=== PATIENT | female | born 1955 | race Caucasian/White ===

== ENCOUNTER 2024-07-03 08:28 | Emergency (ER) | payer MEDICARE ==
[~2024-07-03] VITALS: Ht 160 cm; Wt 101.6 kg
[2024-07-03 09:26] LABS: VENOUS BASE EXCESS 3.1 (-2.0-2.0); VENOUS HCO3 29.4 MMOL/L (23.0-27.0); VENOUS O2 SATURATION 47.1 % (60.0-80.0); VENOUS PARTIAL PRESSURE CO2 51.5 mmHg (38.0-50.0); VENOUS PARTIAL PRESSURE O2 27.2 mmHg (30.0-50.0); VENOUS PH 7.375 UNITS (7.330-7.430); VENOUS STANDARD HCO3 25.8 MMOL/L
[2024-07-03] MEDS: NS (Normal Saline) 0.9% 1,000 ML IV ONE (09:27)
[2024-07-03 09:40] LABS: BASO % 0.4 % (0.0-1.0); EOS # 0.1 10^3/uL (0.0-0.5); EOS % 0.6 % (0.0-3.0); HEMATOCRIT 46.3 % (36.0-47.0); HEMOGLOBIN 14.5 g/dl (12.0-15.5); LYMPH # 0.8 10^3/uL (1.5-5.0); LYMPH % 9.5 % (24.0-44.0); MEAN CORPUSCULAR HEMOGLOBIN 28.8 pg (27.0-33.0); MEAN CORPUSCULAR HGB CONC 31.3 g/dl (32.0-36.5); MONO # 0.6 10^3/uL (0.0-0.8); MONO % 6.6 % (2.0-8.0); NEUTROPHILS # 6.8 10^3/uL (1.5-8.5); NEUTROPHILS % 82.3 % (36.0-66.0); PLATELET COUNT, AUTOMATED 179 10^3/uL (150-450); RED BLOOD COUNT 5.03 10^6/uL (4.00-5.40); WHITE BLOOD COUNT 8.3 10^3/uL (4.0-10.0)
[2024-07-03 09:53] LABS: CK-MB VALUE MASS < 1.0 NG/ML (<3.6); ETHYL ALCOHOL (ETHANOL) 0.004 % (0.000-0.010)
[2024-07-03 09:54] LABS: SALICYLATE LEVEL < 3.0 MG/DL (<30)
[2024-07-03 09:55] LABS: ALBUMIN 3.4 G/DL (3.2-5.2); ALKALINE PHOSPHATASE 60 U/L (35-104); ALT/SGPT 25 U/L (7.0-40); AST/SGOT 18 U/L (<34); BILIRUBIN,DIRECT 0.1 MG/DL (<0.4); BILIRUBIN,TOTAL 0.4 MG/DL (0.3-1.2); BLOOD UREA NITROGEN 35 MG/DL (9-23); CALCIUM LEVEL 9.3 MG/DL (8.3-10.6); CARBON DIOXIDE LEVEL 31 MMOL/L (20-31); CHLORIDE LEVEL 102 MMOL/L (98-107); CPK CREATINE PHOSPHOKINASE 36 U/L (34-145); CREATININE FOR GFR 0.95 MG/DL (0.55-1.30); GLOMERULAR FILTRATION RATE 64.1 (>39); GLUCOSE, FASTING 134 MG/DL (74-106); MB/CK RELATIVE INDEX 2.77 (< OR =4); POTASSIUM SERUM 4.2 MMOL/L (3.5-5.1); SODIUM LEVEL 141 MMOL/L (136-145); TOTAL PROTEIN 6.5 G/DL (5.7-8.2)
[2024-07-03 09:56] LABS: THYROID STIMULATING HORMONE 2.396 uIU/ML (0.55-4.78)
[2024-07-03] MEDS: LIDOCAINE 2% 5ML JELLY UROJET TOP ONE (10:58)
[2024-07-03] MEDS: NS 500 ML IV ONE (12:05)
[2024-07-03 12:45] LABS: KETONE, URINE AUTO RFX NEGATIVE (NEGATIVE); MUCUS, URINE RFX SMALL (NEGATIVE); NITRITE, URINE AUTO RFX NEGATIVE (NEGATIVE); RBC, URINE AUTO RFX 1 /HPF (0-3); SQUAM EPITHELIAL CELL UR AURFX 1 /HPF (0-6); WBC, URINE AUTO RFX 5 /HPF (0-3)
[2024-07-03 12:48] LABS: LEUKOCYTE ESTERASE UR AUTO RFX 2+ (NEGATIVE)
[2024-07-03 13:08] LABS: AMPHETAMINES LEVEL URINE NEGATIVE (NEGATIVE); BARBITURATES URINE NEGATIVE (NEGATIVE); BENZODIAZEPINES URINE NEGATIVE (NEGATIVE); COCAINE METABOLITE URINE NEGATIVE (NEGATIVE); METHADONE URINE NEGATIVE (NEGATIVE); OPIATES URINE NEGATIVE (NEGATIVE); PHENCYCLIDINE URINE NEGATIVE (NEGATIVE)
[2024-07-03 13:11] LABS: CANNABINOIDS URINE POSITIVE (NEGATIVE)
[2024-07-03] MEDS: OSELTAMIVIR PHOSPHATE 75 MG CAP PO ONE (13:22)
[2024-07-03] MEDS ORDERED: BACT800T5 PO (13:57)
[2024-07-03] MEDS ORDERED: OSEL75CA PO (13:57)
[2024-07-03 14:35] VITALS: BP 133/67; TEMP 98.7; O2SAT 96
[2024-07-03] MEDS: BACTRIM 160MG/800MG DS TAB PO ONE (14:46)
[2024-07-04] MEDS ORDERED: PRED10TA2 PO (10:56)
[2024-07-04] MEDS ORDERED: VITA-172 PO (10:56)
[2024-07-04] MEDS ORDERED: VITA100054 PO (10:56)
[2024-07-04] MEDS ORDERED: HYDR-3490 PO (10:56)
[2024-07-04] MEDS ORDERED: PARO30TA3 PO (12:04)
[2024-07-04] MEDS ORDERED: GLIM2TAB4 PO (12:04)
[2024-07-04] MEDS ORDERED: PIOG1TAB37 PO (12:04)
[2024-07-04] MEDS ORDERED: FAMO20TA PO (12:04)
[2024-07-04] MEDS ORDERED: PARO20TA4 PO (12:04)
== END 2024-07-03 14:51 | disposition home or self-care (01) ==
LOC: M ED 08:28 → EDBD 08:28 → M ED 14:51
DX: R53.1 Weakness (principal); J10.1 Influenza due to other identified influenza virus with other respiratory manifestations; N39.0 Urinary tract infection, site not specified; E11.9 Type 2 diabetes mellitus without complications; F12.10 Cannabis abuse, uncomplicated; F10.10 Alcohol abuse, uncomplicated; Z79.51 Long term (current) use of inhaled steroids; Z79.2 Long term (current) use of antibiotics; Z79.84 Long term (current) use of oral hypoglycemic drugs; Z79.899 Other long term (current) drug therapy

== ENCOUNTER 2024-07-04 06:05 | Observation (INO) | payer MEDICARE ==
[~2024-07-04] VITALS: Ht 160 cm; Wt 98.4 kg
[~2024-07-04 06:05] MED LIST: BACT800T5 PO; OSEL75CA PO
[2024-07-04 06:49] LABS: BASO % 0.4 % (0.0-1.0); EOS % 0.4 % (0.0-3.0); HEMATOCRIT 43.8 % (36.0-47.0); LYMPH # 1.7 10^3/uL (1.5-5.0); LYMPH % 34.6 % (24.0-44.0); MEAN CORPUSCULAR HEMOGLOBIN 28.7 pg (27.0-33.0); MEAN CORPUSCULAR VOLUME 89.8 fl (80.0-96.0); MONO # 0.6 10^3/uL (0.0-0.8); MONO % 11.8 % (2.0-8.0); NEUTROPHILS # 2.6 10^3/uL (1.5-8.5); NEUTROPHILS % 52.2 % (36.0-66.0); PLATELET COUNT, AUTOMATED 167 10^3/uL (150-450); RED BLOOD COUNT 4.88 10^6/uL (4.00-5.40); WHITE BLOOD COUNT 4.9 10^3/uL (4.0-10.0)
[2024-07-04] MEDS: IPRATROPIUM 0.5MG/ALBUTEROL 2.5MG INH SOL UD 3ML NEB ONE (07:15)
[2024-07-04 07:21] LABS: ALBUMIN 3.4 G/DL (3.2-5.2); BILIRUBIN,DIRECT 0.2 MG/DL (<0.4); BILIRUBIN,TOTAL 0.5 MG/DL (0.3-1.2); CALCIUM LEVEL 8.8 MG/DL (8.3-10.6); CREATININE FOR GFR 0.92 MG/DL (0.55-1.30); GLOMERULAR FILTRATION RATE 66.6 (>39); POTASSIUM SERUM 4.1 MMOL/L (3.5-5.1); TOTAL PROTEIN 6.4 G/DL (5.7-8.2)
[2024-07-04] MEDS: ACETAMINOPHEN 325 MG TAB PO ONE (07:34)
[2024-07-04] MEDS: NS (Normal Saline) 0.9% 1,000 ML IV ONE (07:36)
[2024-07-04] MEDS ORDERED: PRED10TA2 PO (10:56)
[2024-07-04] MEDS ORDERED: HYDR-3490 PO (10:56)
[2024-07-04] MEDS ORDERED: VITA-172 PO (10:56)
[2024-07-04] MEDS ORDERED: VITA100054 PO (10:56)
[2024-07-04] MEDS ORDERED: HOME MED LIST COMPLETE! XX SCH (11:00)
[2024-07-04] MEDS ORDERED: DEXTROSE 50% 50ML SYRINGE IV PRN (11:35)
[2024-07-04] MEDS ORDERED: GLUCAGON INJ 1MG VIAL SC PRN (11:35)
[2024-07-04] MEDS ORDERED: GLUCOSE 4 GM CHEW PO PRN (11:35)
[2024-07-04] MEDS ORDERED: guaiFENesin DM *SUGAR FREE* 5ML**DIABETIC TUSSIN DM PO PRN (11:40)
[2024-07-04] MEDS ORDERED: IPRATROPIUM 0.5MG/ALBUTEROL 2.5MG INH SOL UD 3ML NEB PRN (11:40)
[2024-07-04] MEDS ORDERED: ISOVUE-370 76% 100ML VIAL As Ordered ONE (11:54)
[2024-07-04] MEDS: INSULIN LISPRO (NovoLOG) PER UNIT SC SCH ×2 (12:00→21:00)
[2024-07-04] MEDS ORDERED: GLIM2TAB4 PO (12:04)
[2024-07-04] MEDS ORDERED: FAMO20TA PO (12:04)
[2024-07-04] MEDS ORDERED: PIOG1TAB37 PO (12:04)
[2024-07-04] MEDS ORDERED: PARO30TA3 PO (12:04)
[2024-07-04] MEDS ORDERED: PARO20TA4 PO (12:04)
[2024-07-04] MEDS: LORazepam 2 MG/ML 1ML VIAL IV STA (12:09)
[2024-07-04] MEDS: IPRATROPIUM 0.5MG/ALBUTEROL 2.5MG INH SOL UD 3ML NEB SCH (12:36)
[2024-07-04 14:00] VITALS: BP 131/85; TEMP 98.6; O2SAT 95
[2024-07-04] MEDS: cefTRIAXone SOD 2 GM in DEXTROSE 5% (D5W) ADV/MINI-BAG 50 ML IV SCH (14:33)
[2024-07-04] MEDS: ONDANSETRON 4MG 2ML VIAL IV PRN (14:36)
[2024-07-04 16:00] VITALS: BP 123/84; TEMP 97.5; O2SAT 88
[2024-07-04] MEDS: PARoxetine 20MG TABLET PO SCH (16:50)
[2024-07-04] MEDS: predniSONE 10MG TAB PO SCH (16:50)
[2024-07-04] MEDS: PARoxetine 10MG TABLET PO SCH (16:50)
[2024-07-04] MEDS: FAMOTIDINE 20 MG TAB PO SCH (16:50)
[2024-07-04 20:09] VITALS: BP 114/73; TEMP 98.8; O2SAT 90
[2024-07-05] VITALS: BP 126/71; TEMP 97.6; O2SAT 93
[2024-07-05 04:50] VITALS: BP 145/64; TEMP 98.6; O2SAT 91
[2024-07-05 07:22] LABS: HEMATOCRIT 39.4 % (36.0-47.0); HEMOGLOBIN 12.7 g/dl (12.0-15.5); MEAN CORPUSCULAR HEMOGLOBIN 28.6 pg (27.0-33.0); MEAN CORPUSCULAR HGB CONC 32.2 g/dl (32.0-36.5); MEAN CORPUSCULAR VOLUME 88.7 fl (80.0-96.0); PLATELET COUNT, AUTOMATED 136 10^3/uL (150-450); RED BLOOD COUNT 4.44 10^6/uL (4.00-5.40); WHITE BLOOD COUNT 3.2 10^3/uL (4.0-10.0)
[2024-07-05 07:36] LABS: ANISOCYTOSIS 1+; ATYPICAL LYMPH 8 % (0-5); BASOPHILS 1 % (0-1); LYMPHOCYTES 41 % (16-44); MONOCYTES 6 % (0-5); NEUTROPHILS 44 % (28-66); PLATELET ESTIMATE NORMAL (NORMAL)
[2024-07-05 07:37] LABS: POIKILOCYTOSIS 1+
[2024-07-05 07:50] LABS: CALCIUM LEVEL 8.2 MG/DL (8.3-10.6); CREATININE FOR GFR 0.83 MG/DL (0.55-1.30); GLOMERULAR FILTRATION RATE 75.3 (>39); MAGNESIUM LEVEL 1.6 MG/DL (1.8-2.4)
[2024-07-05 08:00] VITALS: BP 117/59; TEMP 97.7; O2SAT 94
[2024-07-05 08:21] LABS: PROCALCITONIN 0.11 ng/ml
[2024-07-05] MEDS ORDERED: VENTAER INH (08:57)
[2024-07-05] MEDS ORDERED: CEFD1CAP9 PO (08:57)
[2024-07-05] MEDS ORDERED: MAGN500T2 PO (09:00)
[2024-07-05] MEDS: ENOXAPARIN 40MG/0.4ML SYRINGE (J1650 PER 10MG) SC SCH (09:09)
[2024-07-05] MEDS: ACETAMINOPHEN 500 MG TAB PO ONE (09:33)
[2024-07-05] MEDS ORDERED: ONDA-83 PO (11:37)
== END 2024-07-05 11:45 | disposition home or self-care (01) ==
LOC: M ED 06:05 → M ED INP 06:06 → UNDOADMOB 10:33 → M ED INP 10:33 → M MS5PR 13:45 → UNDODISOB 07-05 11:45
PROVIDERS: ADMIT Internal Medicine; ATTEND Internal Medicine
DX: J10.1 Influenza due to other identified influenza virus with other respiratory manifestations (principal); J40 Bronchitis, not specified as acute or chronic; N39.0 Urinary tract infection, site not specified; D75.9 Disease of blood and blood-forming organs, unspecified; E11.9 Type 2 diabetes mellitus without complications; F41.1 Generalized anxiety disorder; M32.9 Systemic lupus erythematosus, unspecified; E83.42 Hypomagnesemia; K57.90 Diverticulosis of intestine, part unspecified, without perforation or abscess without bleeding; R10.9 Unspecified abdominal pain; R06.02 Shortness of breath; R50.9 Fever, unspecified; E66.812 Obesity, class 2; Z98.890 Other specified postprocedural states; Z90.49 Acquired absence of other specified parts of digestive tract; Z80.0 Family history of malignant neoplasm of digestive organs; Z82.41 Family history of sudden cardiac death; Z79.899 Other long term (current) drug therapy
CPT/HCPCS: 36415; 71045; 71275; 80048; 80076; 83605; 83735; 84145; 85025; 87040; 93005; 93041; 94640; 94760; 96361; 96372; 96374; 96375; 99285; G0378; J0696; J1650; J2060; J2405; J7512; Q9967

== ENCOUNTER → 2024-08-04 | Outpatient (REF) | payer MEDICARE ==
[~2024-08-04] MED LIST changes: +CEFD1CAP9 PO; +CHOL25CA2 PO; +FAMO20TA PO; +GLIM2TAB4 PO; +HYDR-3490 PO; +MAGN500T2 PO; +ONDA-83 PO; +PARO20TA4 PO; +PARO30TA3 PO; +PIOG1TAB37 PO; +PRED10TA2 PO; +VENTAER INH; +VITA-172 PO
[2024-08-04 17:55] LABS: BASO % 0.6 % (0.0-1.0); EOS # 0.2 10^3/uL (0.0-0.5); EOS % 2.2 % (0.0-3.0); HEMATOCRIT 36.2 % (36.0-47.0); HEMOGLOBIN 11.6 g/dl (12.0-15.5); LYMPH # 1.9 10^3/uL (1.5-5.0); LYMPH % 27.3 % (24.0-44.0); MEAN CORPUSCULAR HEMOGLOBIN 29.4 pg (27.0-33.0); MEAN CORPUSCULAR VOLUME 91.9 fl (80.0-96.0); MONO # 0.5 10^3/uL (0.0-0.8); MONO % 6.9 % (2.0-8.0); NEUTROPHILS # 4.3 10^3/uL (1.5-8.5); NEUTROPHILS % 62.6 % (36.0-66.0); PLATELET COUNT, AUTOMATED 211 10^3/uL (150-450); RED BLOOD COUNT 3.94 10^6/uL (4.00-5.40); WHITE BLOOD COUNT 6.9 10^3/uL (4.0-10.0)
[2024-08-04 18:09] LABS: C REACTIVE PROTEIN QUANTITATIV 1.13 MG/DL (<1.0)
[2024-08-04 18:10] LABS: ALBUMIN 3.2 G/DL (3.2-5.2); ALKALINE PHOSPHATASE 43 U/L (35-104); ALT/SGPT 32 U/L (7.0-40); AST/SGOT 16 U/L (<34); BILIRUBIN,TOTAL 0.4 MG/DL (0.3-1.2); BLOOD UREA NITROGEN 25 MG/DL (9-23); CARBON DIOXIDE LEVEL 31 MMOL/L (20-31); CHLORIDE LEVEL 104 MMOL/L (98-107); CHOLESTEROL LEVEL 225 MG/DL (<200); CHOLESTEROL RISK RATIO 4.55 (<5); CREATININE FOR GFR 0.74 MG/DL (0.55-1.30); GLOMERULAR FILTRATION RATE 86.4 (>39); GLUCOSE, FASTING 261 MG/DL (74-106); HDL CHOLESTEROL 49.4 MG/DL (>40); MAGNESIUM LEVEL 1.7 MG/DL (1.8-2.4); NON-HDL-C 175.6 MG/DL; POTASSIUM SERUM 3.5 MMOL/L (3.5-5.1); SODIUM LEVEL 142 MMOL/L (136-145); TRIGLYCERIDES LEVEL 407 MG/DL (<150)
[2024-08-04 18:13] LABS: RHEUMATOID FACTOR QUANT 10.9 IU/ML (<14); THYROID STIMULATING HORMONE 2.346 uIU/ML (0.55-4.78)
[2024-08-04 18:14] LABS: FOLATE 21.2 NG/ML (>5.4); TOTAL 25(OH) VITAMIN D 37.9 NG/ML (20.0-100.0); VITAMIN B12 LEVEL 1652 PG/ML (211-911)
[2024-08-04 18:26] LABS: HEMOGLOBIN A1c 6.5 % (4.0-6.0)
[2024-08-04 19:29] LABS: ERYTHROCYTE SEDIMENTATION RATE 27 mm/hr (0-30)
[2024-08-06 12:46] LABS: SSA SJOGRENS A <1.0 NEG AI (<1.0 NEG); SSB SJOGRENS B <1.0 NEG AI (<1.0 NEG)
[2024-08-07 15:07] LABS: ANA PATTERN Nuclear, Homogeneous (NEGATIVE); ANA SCREEN, IFA POSITIVE (NEGATIVE)
[2024-08-11 15:32] LABS: HLA-B27 Negative (Negative)
== END ==
LOC: M LAB REF 16:54
PROVIDERS: ATTEND Physician Assistant
DX: E66.9 Obesity, unspecified (principal); E55.9 Vitamin D deficiency, unspecified; M25.50 Pain in unspecified joint; I10 Essential (primary) hypertension

== ENCOUNTER → 2024-08-10 | Outpatient (REF) | payer MEDICARE ==
[2024-08-10 18:19] LABS: CREATININE, URINE 109.3 MG/DL; MALB URINE SIEMENS < 3.0 MG/L
== END ==
LOC: M LAB REF 17:20
PROVIDERS: ATTEND Physician Assistant
DX: I10 Essential (primary) hypertension (principal)

== ENCOUNTER → 2024-12-02 | Outpatient (CLI) | payer MEDICARE ==
[2024-12-02 13:39] LABS: ESTIMATED AVERAGE GLUCOSE 117.0 MG/DL (60-110)
[2024-12-02 13:47] LABS: ALT/SGPT 19 U/L (7.0-40); AST/SGOT 17 U/L (<34); CALCIUM LEVEL 10.0 MG/DL (8.3-10.6); CARBON DIOXIDE LEVEL 28 MMOL/L (20-31); CHLORIDE LEVEL 106 MMOL/L (98-107); CREATININE FOR GFR 0.80 MG/DL (0.55-1.30); GLOMERULAR FILTRATION RATE 78.7 (>39); POTASSIUM SERUM 4.1 MMOL/L (3.5-5.1); SODIUM LEVEL 143 MMOL/L (136-145)
[2024-12-02 13:48] LABS: VITAMIN B12 LEVEL 1965 PG/ML (211-911)
[2024-12-02 13:49] LABS: FREE T4 1.34 NG/DL (0.89-1.76)
== END ==
LOC: M RAD 11:34
PROVIDERS: ATTEND Family Medicine
DX: M25.511 Pain in right shoulder (principal); M25.512 Pain in left shoulder; E11.69 Type 2 diabetes mellitus with other specified complication; R33.9 Retention of urine, unspecified; R20.9 Unspecified disturbances of skin sensation

== ENCOUNTER → 2024-12-18 | Outpatient (CLI) | payer MEDICARE | LOC: M SLEEP 20:00 | PROVIDERS: ATTEND Physician Assistant | DX: G47.33 Obstructive sleep apnea (adult) (pediatric) (principal) ==

== ENCOUNTER → 2025-01-06 | Outpatient (CLI) | payer MEDICARE ==
[~2025-01-06] MED LIST changes: +PROHANCE 279.3MG/ML 15ML VIAL ONE; +PROHANCE 279.3MG/ML 5ML VIAL ONE
== END ==
LOC: M PLAIMG 12:58
PROVIDERS: ATTEND Family Medicine
DX: R33.9 Retention of urine, unspecified (principal); R26.9 Unspecified abnormalities of gait and mobility
CPT/HCPCS: 72156; 72158; A9576

== ENCOUNTER → 2025-01-08 | Outpatient (CLI) | payer MEDICARE | LOC: M PLAIMG 13:27 | PROVIDERS: ATTEND Family Medicine | DX: R33.9 Retention of urine, unspecified (principal); R26.9 Unspecified abnormalities of gait and mobility; R20.9 Unspecified disturbances of skin sensation; M47.814 Spondylosis without myelopathy or radiculopathy, thoracic region; M51.24 Other intervertebral disc displacement, thoracic region; M46.04 Spinal enthesopathy, thoracic region; M48.04 Spinal stenosis, thoracic region | CPT/HCPCS: 72157; A9576 ==

== ENCOUNTER → 2025-02-02 | Outpatient (CLI) | payer MEDICARE ==
[~2025-02-02] MED LIST changes: -PROHANCE 279.3MG/ML 15ML VIAL ONE; -PROHANCE 279.3MG/ML 5ML VIAL ONE
== END ==
LOC: M PLAIMG 06:50
PROVIDERS: ATTEND Physician Assistant
DX: M50.23 Other cervical disc displacement, cervicothoracic region (principal); M48.02 Spinal stenosis, cervical region; M47.812 Spondylosis without myelopathy or radiculopathy, cervical region; M50.00 Cervical disc disorder with myelopathy, unspecified cervical region

== ENCOUNTER → 2025-02-03 | Outpatient (CLI) | payer MEDICARE ==
[2025-02-03 16:35] LABS: CREATININE FOR GFR 0.82 MG/DL (0.55-1.30); GLOMERULAR FILTRATION RATE 76.4 (>39)
== END ==
LOC: M PLALAB 12:56
PROVIDERS: ATTEND Otolaryngology
DX: M50.01 Cervical disc disorder with myelopathy, high cervical region (principal)

== ENCOUNTER → 2025-02-05 | Outpatient (CLI) | payer MEDICARE ==
[~2025-02-05] MED LIST changes: +ISOVUE-370 76% 100 ML VIAL As Ordered ONE
== END ==
LOC: M RAD 07:12
PROVIDERS: ATTEND Otolaryngology
DX: M50.01 Cervical disc disorder with myelopathy, high cervical region (principal); E04.2 Nontoxic multinodular goiter; M47.12 Other spondylosis with myelopathy, cervical region; M48.02 Spinal stenosis, cervical region
CPT/HCPCS: 70491; Q9967

== ENCOUNTER → 2025-02-23 | Outpatient (CLI) | payer MEDICARE ==
[~2025-02-23] MED LIST changes: +CARDIAC STRESS TEST RESCUE BOX 1 KIT EA XX ONE; -CHOL25CA2 PO; +D3 H10003 PO; -ISOVUE-370 76% 100 ML VIAL As Ordered ONE; +LOSA25TA13 PO; +PREG25CA63 PO
== END ==
LOC: M CARPUL 14:34
PROVIDERS: ATTEND Family Medicine
DX: Z01.818 Encounter for other preprocedural examination (principal)

== ENCOUNTER → 2025-03-02 | Outpatient (CLI) | payer MEDICARE ==
[~2025-03-02] MED LIST changes: -CARDIAC STRESS TEST RESCUE BOX 1 KIT EA XX ONE
[2025-03-02 17:33] LABS: BASO # 0.1 10^3/uL (0.0-0.2); BASO % 0.9 % (0.0-1.0); EOS # 0.1 10^3/uL (0.0-0.5); EOS % 2.3 % (0.0-3.0); LYMPH # 1.8 10^3/uL (1.5-5.0); LYMPH % 31.2 % (24.0-44.0); MONO # 0.4 10^3/uL (0.0-0.8); MONO % 6.3 % (2.0-8.0); NEUTROPHILS # 3.4 10^3/uL (1.5-8.5); NEUTROPHILS % 58.9 % (36.0-66.0); PLATELET COUNT, AUTOMATED 242 10^3/uL (150-450)
[2025-03-02 17:39] LABS: ALT/SGPT 15.0 U/L (7.0-40); AST/SGOT 25.0 U/L (<34); CALCIUM LEVEL 9.7 MG/DL (8.3-10.6); CARBON DIOXIDE LEVEL 32.0 MMOL/L (20-31); CHLORIDE LEVEL 103.0 MMOL/L (98-107); CREATININE FOR GFR 0.85 MG/DL (0.55-1.30); GLOMERULAR FILTRATION RATE 73.2 (>39); POTASSIUM SERUM 4.4 MMOL/L (3.5-5.1); SODIUM LEVEL 143.0 MMOL/L (136-145)
[2025-03-02 17:47] LABS: ESTIMATED AVERAGE GLUCOSE 103.0 MG/DL (60-110)
== END ==
LOC: M PLALAB 14:34
PROVIDERS: ATTEND Family Medicine
DX: Z01.818 Encounter for other preprocedural examination (principal); G95.20 Unspecified cord compression

== ENCOUNTER → 2025-03-02 | Outpatient (CLI) | payer MEDICARE | LOC: M WHC 14:02 | PROVIDERS: ATTEND Otolaryngology | DX: Z01.818 Encounter for other preprocedural examination (principal); E04.1 Nontoxic single thyroid nodule; Z79.899 Other long term (current) drug therapy; G95.20 Unspecified cord compression ==

== ENCOUNTER → 2025-03-08 | Outpatient (CLI) | payer MEDICARE ==
[~2025-03-08] MED LIST changes: +ACET-683 PO; +ACET-897 PO; +ALPR0.5T3 PO; +CYCL10TA20 PO; +GLIM1TAB84 PO; +LYRI75CA PO; +MIRA33506 PO; +OXYC-517 PO; +SENN18TA PO
[2025-03-08 11:37] LABS: APPEARANCE, URINE CLEAR (CLEAR); BACTERIA, URINE AUTO NEGATIVE (NEGATIVE); BILIRUBIN, URINE AUTO NEGATIVE (NEGATIVE); BLOOD, URINE BLOOD NEGATIVE (NEGATIVE); GLUCOSE, URINE (UA) AUTO NEGATIVE (NEGATIVE); KETONE, URINE AUTO TRACE mg/dL (NEGATIVE); LEUKOCYTE ESTERASE, URINE AUTO TRACE (NEGATIVE); MUCUS, URINE SMALL (NEGATIVE); NITRITE, URINE AUTO NEGATIVE (NEGATIVE); PROTEIN, URINE AUTO NEGATIVE (NEGATIVE); RBC, URINE AUTO 1 /HPF (0-3); SPECIFIC GRAVITY URINE AUTO 1.021 (1.002-1.035); SQUAMOUS EPITHELIAL CELL UR AU 1 /HPF (0-6); UROBILINOGEN, URINE AUTO 0.2 mg/dL (0.0-2.0); WBC, URINE AUTO 4 /HPF (0-3)
[2025-03-08 11:59] LABS: INR 0.92
== END ==
LOC: M LAB 11:00
DX: Z01.818 Encounter for other preprocedural examination (principal); M50.01 Cervical disc disorder with myelopathy, high cervical region; Z79.899 Other long term (current) drug therapy

== ENCOUNTER → 2025-03-08 | Outpatient (CLI) | payer MEDICARE ==
[~2025-03-08] MED LIST changes: -ACET-683 PO; -ACET-897 PO; -ALPR0.5T3 PO; -CYCL10TA20 PO; -GLIM1TAB84 PO; -LYRI75CA PO; -MIRA33506 PO; -OXYC-517 PO; -SENN18TA PO
[2025-03-08 11:24] LABS: CREATININE FOR GFR 0.78 MG/DL (0.55-1.30); GLOMERULAR FILTRATION RATE 81.2 (>39)
== END ==
LOC: M LAB 10:10
PROVIDERS: ATTEND Otolaryngology
DX: M50.01 Cervical disc disorder with myelopathy, high cervical region (principal)

== ENCOUNTER 2025-03-09 06:50 | Inpatient (IN) | payer MEDICARE ==
[~2025-03-09] VITALS: Ht 160 cm; Wt 116.0 kg
[2025-03-09] MEDS: LR 1,000 ML IV SCH ×2 (07:05→19:25)
[2025-03-09] MEDS ORDERED: GLUCOSE 4 GM CHEW PO PRN ×2 (07:05→19:45)
[2025-03-09] MEDS ORDERED: DEXTROSE 50% 50 ML SYRINGE IV PRN ×2 (07:05→19:45)
[2025-03-09] MEDS ORDERED: INSULIN LISPRO (NovoLOG) PER UNIT SC PRN (07:05)
[2025-03-09] MEDS ORDERED: GLUCAGON INJ 1 MG VIAL SC PRN ×2 (07:05→19:45)
[2025-03-09] MEDS ORDERED: PROPOFOL 1,000 MG/100 ML VIAL As Ordered ONE (07:28)
[2025-03-09] MEDS ORDERED: ROCURONIUM BROMIDE 50MG/5ML VIAL As Ordered ONE (07:29)
[2025-03-09] MEDS ORDERED: SUCCINYLCHOLINE 100MG/5ML SYRINGE As Ordered ONE (07:29)
[2025-03-09] MEDS ORDERED: PHENYLEPHRINE 10MG/ML 1ML VIAL As Ordered ONE (07:31)
[2025-03-09] MEDS ORDERED: ONDANSETRON 4MG/2ML VIAL As Ordered ONE (07:32)
[2025-03-09] MEDS ORDERED: dexAMETHasone 4 MG/ML 1 ML VIAL As Ordered ONE (07:32)
[2025-03-09] MEDS ORDERED: REMIFENTANIL 1MG VIAL As Ordered ONE (07:36)
[2025-03-09] MEDS: ceFAZolin SOD 2 GM IV ONCE IV ONE (08:24)
[2025-03-09] MEDS: LIDOCAINE W/EPINEPHrine 1% 20 ML VIAL As Ordered ONE (09:40)
[2025-03-09] MEDS ORDERED: ACETAMINOPHEN 1000MG/100ML IV BAG As Ordered ONE (10:02)
[2025-03-09] MEDS: THROMBIN 5,000 UNITS VIAL As Ordered ONE (18:04)
[2025-03-09] MEDS: THROMBIN 20,000 UNITS KIT As Ordered ONE (18:05)
[2025-03-09] MEDS ORDERED: HYDROmorphone HCL 2 MG/ML 1 ML VIAL As Ordered ONE (18:56)
[2025-03-09] MEDS ORDERED: LABETALOL 100 MG/20 ML VIAL As Ordered ONE (19:14)
[2025-03-09] MEDS ORDERED: HYDROMORPHONE HCL 0.5 MG/0.5 ML SYRINGE IV PRN (19:25)
[2025-03-09] MEDS ORDERED: ONDANSETRON 4MG/2ML VIAL IV PRN (19:25)
[2025-03-09] MEDS ORDERED: CHLORASEPTIC SPRAY MT PRN (19:45)
[2025-03-09] MEDS ORDERED: hydrALAZINE 20 MG/ML 1 ML VIAL IV PRN (19:45)
[2025-03-09] MEDS ORDERED: METOPROLOL 5 MG/5 ML VIAL IV PRN (19:45)
[2025-03-09] MEDS ORDERED: ISOVUE-370 76% 100 ML VIAL As Ordered ONE (20:22)
[2025-03-09 21:00] VITALS: BP 144/65; TEMP 97; O2SAT 94
[2025-03-09] MEDS: INSULIN LISPRO (NovoLOG) PER UNIT SC SCH (21:00)
[2025-03-09] MEDS: DOCUSATE SODIUM 100 MG CAPSULE PO SCH (21:00)
[2025-03-09] MEDS: CYCLOBENZAPRINE 10 MG TABLET PO PRN (21:18)
[2025-03-09] MEDS: SENNA 8.6 MG TAB PO SCH (21:18)
[2025-03-09 21:30] VITALS: BP 115/57; TEMP 97; O2SAT 94
[2025-03-09] MEDS: NS (Normal Saline) 0.9% 1,000 ML IV ONE (21:35)
[2025-03-09 21:54] VITALS: BP 111/54; TEMP 97.1; O2SAT 96
[2025-03-09 22:58] VITALS: BP 114/54; TEMP 97; O2SAT 95
[2025-03-09 23:49] VITALS: BP 131/60; TEMP 97; O2SAT 95
[2025-03-09] MEDS: ACETAMINOPHEN 325 MG TAB PO SCH (23:49)
[2025-03-10] VITALS (9 sets, daily range): BP systolic 110–142; BP diastolic 56–64; TEMP 96.9–97.6; O2SAT 94–100
[2025-03-10] MEDS: ceFAZolin SODIUM 2 GM in DEXTROSE 5% (D5W) ADV/MINI-BAG 50 ML IV SCH (00:48)
[2025-03-10] MEDS: INSULIN LISPRO (NovoLOG) PER UNIT SC SCH (07:30)
[2025-03-10 07:43] LABS: PLATELET COUNT, AUTOMATED 227 10^3/uL (150-450)
[2025-03-10] MEDS: FAMOTIDINE 20 MG TAB PO SCH (07:58)
[2025-03-10] MEDS: PARoxetine 20MG TABLET PO SCH (07:58)
[2025-03-10] MEDS ORDERED: HOME MED LIST COMPLETE! XX SCH (08:05)
[2025-03-10 08:07] LABS: CALCIUM LEVEL 9.1 MG/DL (8.3-10.6); CARBON DIOXIDE LEVEL 29.0 MMOL/L (20-31); CHLORIDE LEVEL 101.0 MMOL/L (98-107); CREATININE FOR GFR 0.85 MG/DL (0.55-1.30); GLOMERULAR FILTRATION RATE 73.2 (>39); POTASSIUM SERUM 4.2 MMOL/L (3.5-5.1); SODIUM LEVEL 140.0 MMOL/L (136-145)
[2025-03-10] MEDS: LOSARTAN 25 MG TAB PO SCH (13:57)
[2025-03-11 03:26] VITALS: BP 127/60; TEMP 97.2; O2SAT 97
[2025-03-11 06:09] LABS: PLATELET COUNT, AUTOMATED 190 10^3/uL (150-450)
[2025-03-11 06:33] LABS: CALCIUM LEVEL 8.8 MG/DL (8.3-10.6); CARBON DIOXIDE LEVEL 31.0 MMOL/L (20-31); CHLORIDE LEVEL 105.0 MMOL/L (98-107); CREATININE FOR GFR 0.84 MG/DL (0.55-1.30); GLOMERULAR FILTRATION RATE 74.3 (>39); POTASSIUM SERUM 3.6 MMOL/L (3.5-5.1); SODIUM LEVEL 143.0 MMOL/L (136-145)
[2025-03-11 07:13] VITALS: BP 131/60; TEMP 97.7; O2SAT 94
[2025-03-11] MEDS: ALPRAZolam 0.25 MG TAB PO ONE (10:11)
[2025-03-11 12:49] VITALS: BP 144/67; TEMP 97.1; O2SAT 95
[2025-03-11] MEDS: HEPARIN SOD 5000 UNITS/ML 1 ML VIAL/SYRINGE SQ SCH (13:06)
[2025-03-11] MEDS ORDERED: HEPARIN SOD 5000 UNITS/ML 1 ML VIAL/SYRINGE SQ SCH (14:00)
[2025-03-11 16:15] VITALS: BP 142/65; TEMP 97.1; O2SAT 99
[2025-03-11 20:17] VITALS: BP 146/74; TEMP 97.4; O2SAT 94
[2025-03-11] MEDS: traZODone 25MG PER 1/2 TABLET PO ONE (22:02)
[2025-03-11 23:25] VITALS: BP 140/82; TEMP 98; O2SAT 92
[2025-03-12] MEDS: diphenhydrAMINE 50 MG/ML VIAL IV ONE (00:29)
[2025-03-12 03:35] VITALS: BP 143/63; TEMP 97.4; O2SAT 94
[2025-03-12 05:58] LABS: PLATELET COUNT, AUTOMATED 143 10^3/uL (150-450)
[2025-03-12 06:22] LABS: CALCIUM LEVEL 8.7 MG/DL (8.3-10.6); CARBON DIOXIDE LEVEL 30 MMOL/L (20-31); CHLORIDE LEVEL 105 MMOL/L (98-107); CREATININE FOR GFR 0.69 MG/DL (0.55-1.30); GLOMERULAR FILTRATION RATE > 90.0 (>39); POTASSIUM SERUM 3.9 MMOL/L (3.5-5.1); SODIUM LEVEL 145 MMOL/L (136-145)
[2025-03-12 07:59] VITALS: BP 132/76; TEMP 98.3; O2SAT 98
[2025-03-12] MEDS: ALPRAZolam 0.25 MG TAB PO PRN (09:00)
[2025-03-12 12:20] VITALS: TEMP 98.2; O2SAT 98
[2025-03-12] MEDS: ONDANSETRON 4MG/2ML VIAL IV PRN (12:29)
[2025-03-12 12:45] VITALS: BP 148/90
[2025-03-12 16:25] VITALS: BP 128/58; TEMP 97.5; O2SAT 98
[2025-03-12 20:41] VITALS: BP 121/60; TEMP 96.9; O2SAT 98
[2025-03-13] VITALS (8 sets, daily range): BP systolic 116–142; BP diastolic 53–71; TEMP 97–98.4; O2SAT 93–98
[2025-03-13 09:08] LABS: BASO # 0.1 10^3/uL (0.0-0.2); BASO % 1.0 % (0.0-1.0); EOS # 0.1 10^3/uL (0.0-0.5); EOS % 2.5 % (0.0-3.0); LYMPH # 1.2 10^3/uL (1.5-5.0); LYMPH % 22.5 % (24.0-44.0); MONO # 0.4 10^3/uL (0.0-0.8); MONO % 8.2 % (2.0-8.0); NEUTROPHILS # 3.4 10^3/uL (1.5-8.5); NEUTROPHILS % 65.6 % (36.0-66.0); PLATELET COUNT, AUTOMATED 200 10^3/uL (150-450)
[2025-03-13 09:29] LABS: ALT/SGPT < 9 U/L (7.0-40); AST/SGOT 24 U/L (<34); CALCIUM LEVEL 9.1 MG/DL (8.3-10.6); CARBON DIOXIDE LEVEL 32 MMOL/L (20-31); CHLORIDE LEVEL 102 MMOL/L (98-107); CREATININE FOR GFR 0.73 MG/DL (0.55-1.30); GLOMERULAR FILTRATION RATE 87.9 (>39); POTASSIUM SERUM 3.8 MMOL/L (3.5-5.1); SODIUM LEVEL 142 MMOL/L (136-145)
[2025-03-13] MEDS: ALPRAZolam 0.5 MG TAB PO PRN (20:09)
[2025-03-14 03:14] VITALS: BP 142/66; TEMP 97.5; O2SAT 95
[2025-03-14 05:20] LABS: PLATELET COUNT, AUTOMATED 188 10^3/uL (150-450)
[2025-03-14 08:00] VITALS: BP 168/78; TEMP 97.6; O2SAT 94
[2025-03-14 12:00] VITALS: BP 146/64; TEMP 97.6; O2SAT 94
[2025-03-14] MEDS ORDERED: BISACODYL 10 MG SUPP PR PRN (13:40)
[2025-03-14 15:53] VITALS: BP 138/70; TEMP 97.4; O2SAT 96
[2025-03-14] MEDS: MIRALAX *UNIT DOSE* 17 GM PACKET PO SCH (18:51)
[2025-03-14 19:26] VITALS: BP 142/64; TEMP 97.9; O2SAT 95
[2025-03-15 04:22] VITALS: BP 140/62; TEMP 98.2; O2SAT 93
[2025-03-15 09:20] LABS: BASO # 0.0 10^3/uL (0.0-0.2); BASO % 0.8 % (0.0-1.0); EOS # 0.1 10^3/uL (0.0-0.5); EOS % 2.5 % (0.0-3.0); LYMPH # 1.2 10^3/uL (1.5-5.0); LYMPH % 23.0 % (24.0-44.0); MONO # 0.4 10^3/uL (0.0-0.8); MONO % 7.2 % (2.0-8.0); NEUTROPHILS # 3.5 10^3/uL (1.5-8.5); NEUTROPHILS % 66.1 % (36.0-66.0); PLATELET COUNT, AUTOMATED 207 10^3/uL (150-450)
[2025-03-15 09:40] LABS: CALCIUM LEVEL 9.5 MG/DL (8.3-10.6); CARBON DIOXIDE LEVEL 30 MMOL/L (20-31); CHLORIDE LEVEL 103 MMOL/L (98-107); CREATININE FOR GFR 0.64 MG/DL (0.55-1.30); GLOMERULAR FILTRATION RATE > 90.0 (>39); POTASSIUM SERUM 3.7 MMOL/L (3.5-5.1); SODIUM LEVEL 143 MMOL/L (136-145)
[2025-03-15 13:52] VITALS: BP 145/65
[2025-03-15] MEDS: hydroCHLOROthiazide 25 MG TAB PO ONE (13:52)
[2025-03-29] MEDS ORDERED: ACET-897 PO (23:15)
== END 2025-03-15 15:57 | DRG 472 ==
LOC: M SDC 06:50 → M RR INP 19:42 → M PCU 20:52 → OBSVTOIN 03-12 14:48 → M MS5PR 03-15 09:30
PROVIDERS: ADMIT Student in an Organized Health Care Education/Training Program; ATTEND Internal Medicine
PROC: 0RB30ZZ Excision of Cervical Vertebral Disc, Open Approach (ICD-10-PCS; 2025-03-09)
PROC: 0JJ Subcutaneous Tissue and Fascia, Inspection (ICD-10-PCS; 2025-03-09)
PROC: 0RG20A0 Fusion of 2 or more Cervical Vertebral Joints with Interbody Fusion Device, Anterior Approach, Anterior Column, Open Approach (ICD-10-PCS; principal; 2025-03-09 07:30)
DX: M50.01 Cervical disc disorder with myelopathy, high cervical region (principal); J98.11 Atelectasis; M50.021 Cervical disc disorder at C4-C5 level with myelopathy; M50.022 Cervical disc disorder at C5-C6 level with myelopathy; M48.02 Spinal stenosis, cervical region; I10 Essential (primary) hypertension; E11.9 Type 2 diabetes mellitus without complications; R26.89 Other abnormalities of gait and mobility; R29.6 Repeated falls; R39.15 Urgency of urination; E66.01 Morbid (severe) obesity due to excess calories; F40.240 Claustrophobia; N32.81 Overactive bladder; F41.9 Anxiety disorder, unspecified; M54.50 Low back pain, unspecified; G89.29 Other chronic pain; Z79.899 Other long term (current) drug therapy; Z88.2 Allergy status to sulfonamides; Z88.8 Allergy status to other drugs, medicaments and biological substances; Z68.39 Body mass index [BMI] 39.0-39.9, adult

== ENCOUNTER 2025-03-15 14:42 | Inpatient (IN) | payer MEDICARE ==
[~2025-03-15] VITALS: Ht 160 cm; Wt 107.9 kg
[2025-03-15] MEDS ORDERED: MAALOX 30 ML SUSP *UDC PO PRN (15:20)
[2025-03-15] MEDS ORDERED: BISACODYL 5 MG TAB PO PRN (15:20)
[2025-03-15] MEDS ORDERED: MOM 30 ML SUSPENSION UDC PO PRN (15:20)
[2025-03-15] MEDS ORDERED: ONDANSETRON 4MG ORAL DISINTEGRATING TAB PO PRN (15:20)
[2025-03-15] MEDS ORDERED: SIMETHICONE 80MG CHEW TAB PO PRN (15:20)
[2025-03-15] MEDS ORDERED: BISACODYL 10 MG SUPP PR PRN (15:20)
[2025-03-15] MEDS ORDERED: CYCLOBENZAPRINE 10 MG TABLET PO PRN (15:25)
[2025-03-15] MEDS ORDERED: DEXTROSE 50% 50 ML SYRINGE IV PRN (15:25)
[2025-03-15] MEDS ORDERED: GLUCOSE 4 GM CHEW PO PRN (15:25)
[2025-03-15] MEDS ORDERED: GLUCAGON INJ 1 MG VIAL SC PRN (15:25)
[2025-03-15 16:00] VITALS: BP 139/70; TEMP 97.7; O2SAT 96
[2025-03-15] MEDS: INSULIN LISPRO (NovoLOG) PER UNIT SC SCH (17:11)
[2025-03-15 20:00] VITALS: BP 162/80; TEMP 97.7; O2SAT 93
[2025-03-15] MEDS: PREGABALIN 25 MG CAP PO SCH (20:15)
[2025-03-15] MEDS: ALPRAZolam 0.5 MG TAB PO PRN (20:17)
[2025-03-15] MEDS: ACETAMINOPHEN 500 MG TAB PO SCH (20:18)
[2025-03-15] MEDS: HEPARIN SOD 5000 UNITS/ML 1 ML VIAL/SYRINGE SC SCH (20:18)
[2025-03-15] MEDS: **hydrALAZINE HCL** 25 MG TAB PO PRN (20:28)
[2025-03-15] MEDS: DOCUSATE SODIUM 100 MG CAPSULE PO SCH (21:00)
[2025-03-15] MEDS: SENNA 8.6 MG TAB PO SCH (21:00)
[2025-03-16 04:00] VITALS: BP 133/56; TEMP 96.9; O2SAT 95
[2025-03-16 06:42] LABS: BASO # 0.0 10^3/uL (0.0-0.2); BASO % 0.6 % (0.0-1.0); EOS # 0.1 10^3/uL (0.0-0.5); EOS % 3.0 % (0.0-3.0); LYMPH # 1.3 10^3/uL (1.5-5.0); LYMPH % 27.8 % (24.0-44.0); MONO # 0.5 10^3/uL (0.0-0.8); MONO % 9.9 % (2.0-8.0); NEUTROPHILS # 2.7 10^3/uL (1.5-8.5); NEUTROPHILS % 58.3 % (36.0-66.0); PLATELET COUNT, AUTOMATED 210 10^3/uL (150-450)
[2025-03-16 07:05] LABS: ALT/SGPT 12 U/L (7.0-40); AST/SGOT 24 U/L (<34); CALCIUM LEVEL 9.3 MG/DL (8.3-10.6); CARBON DIOXIDE LEVEL 31 MMOL/L (20-31); CHLORIDE LEVEL 102 MMOL/L (98-107); CREATININE FOR GFR 0.67 MG/DL (0.55-1.30); GLOMERULAR FILTRATION RATE > 90.0 (>39); POTASSIUM SERUM 3.5 MMOL/L (3.5-5.1); SODIUM LEVEL 140 MMOL/L (136-145)
[2025-03-16] MEDS: GLIMEPIRIDE 2 MG TAB PO SCH (07:36)
[2025-03-16] MEDS: FAMOTIDINE 20 MG TAB PO SCH (07:36)
[2025-03-16] MEDS: PARoxetine 10MG TABLET PO SCH (07:36)
[2025-03-16] MEDS: hydroCHLOROthiazide 25 MG TAB PO SCH (07:37)
[2025-03-16] MEDS: LOSARTAN 25 MG TAB PO SCH (07:37)
[2025-03-16 12:30] VITALS: BP 133/64; TEMP 98.7; O2SAT 97
[2025-03-16 20:00] VITALS: BP 134/86; TEMP 97.5; O2SAT 97
[2025-03-16] MEDS: PREGABALIN 75 MG CAP PO SCH (21:38)
[2025-03-17 04:34] VITALS: BP 146/70; TEMP 97.3; O2SAT 98
[2025-03-17 12:00] VITALS: BP 151/72; TEMP 97.6; O2SAT 98
[2025-03-17] MEDS: GLIMEPIRIDE 1 MG TABLET PO SCH (17:32)
[2025-03-17 20:00] VITALS: BP 156/68; TEMP 97; O2SAT 99
[2025-03-18 04:00] VITALS: BP 154/70; TEMP 97.3; O2SAT 92
[2025-03-18 12:00] VITALS: BP 127/61; TEMP 97.6; O2SAT 96
[2025-03-18 19:40] VITALS: BP 152/70; TEMP 96.9; O2SAT 98
[2025-03-19 04:00] VITALS: BP 132/60; TEMP 96.1; O2SAT 97
[2025-03-19] MEDS: hydroCHLOROthiazide 25 MG TAB PO SCH (08:31)
[2025-03-19 12:02] VITALS: BP 174/79; TEMP 96.9; O2SAT 100
[2025-03-19 20:00] VITALS: BP 150/69; TEMP 96.6; O2SAT 97
[2025-03-20 04:00] VITALS: BP 128/77; TEMP 97; O2SAT 96
[2025-03-20 12:00] VITALS: BP 129/62; TEMP 97.1; O2SAT 99
[2025-03-20 20:00] VITALS: BP 172/76; TEMP 96.9; O2SAT 97
[2025-03-21 04:00] VITALS: BP 139/62; TEMP 96.9; O2SAT 95
[2025-03-21 12:00] VITALS: BP 158/82; TEMP 96.7; TEMP 98; O2SAT 99
[2025-03-21 20:00] VITALS: BP 149/68; TEMP 97.9; O2SAT 95
[2025-03-22 04:00] VITALS: BP 147/65; TEMP 97.2; O2SAT 93
[2025-03-22 12:00] VITALS: BP 140/68; TEMP 97.5; O2SAT 97
[2025-03-22 20:00] VITALS: BP 124/58; TEMP 96.8; O2SAT 97
[2025-03-23 04:00] VITALS: BP 120/54; TEMP 97.2; O2SAT 92
[2025-03-23 12:00] VITALS: BP 104/55; TEMP 97; O2SAT 99
[2025-03-23 20:00] VITALS: BP 125/56; TEMP 97.4; O2SAT 95
[2025-03-23 20:30] VITALS: O2SAT 97
[2025-03-23] MEDS: PREGABALIN 75 MG CAP PO SCH (21:13)
[2025-03-24 04:00] VITALS: BP 125/55; TEMP 97.2; O2SAT 95
[2025-03-24 09:30] VITALS: BP 125/55
[2025-03-24] MEDS: PREGABALIN 25 MG CAP PO SCH (09:31)
[2025-03-24] MEDS ORDERED: ALPR0.5T3 PO (09:36)
[2025-03-24] MEDS ORDERED: HYDR-3490 PO (09:36)
[2025-03-24] MEDS ORDERED: GLIM1TAB84 PO (09:36)
[2025-03-24] MEDS ORDERED: LYRI75CA PO (09:36)
[2025-03-24] MEDS ORDERED: ACET-683 PO (09:36)
[2025-03-24] MEDS ORDERED: OXYC-517 PO (09:36)
[2025-03-24] MEDS ORDERED: CYCL10TA20 PO (09:36)
[2025-03-24] MEDS ORDERED: PREG25CA63 PO (09:36)
[2025-03-29] MEDS ORDERED: ACET-897 PO (23:15)
== END 2025-03-24 11:21 | disposition home health service (06) | DRG 92 ==
LOC: M PM&R 16:00
PROVIDERS: ADMIT Physical Medicine & Rehabilitation; ATTEND Physical Medicine & Rehabilitation
DX: G95.20 Unspecified cord compression (principal); Z68.41 Body mass index [BMI] 40.0-44.9, adult; M47.12 Other spondylosis with myelopathy, cervical region; M48.02 Spinal stenosis, cervical region; R26.89 Other abnormalities of gait and mobility; R29.6 Repeated falls; E11.42 Type 2 diabetes mellitus with diabetic polyneuropathy; R60.0 Localized edema; M54.50 Low back pain, unspecified; G89.29 Other chronic pain; Z74.1 Need for assistance with personal care; Z74.09 Other reduced mobility; I10 Essential (primary) hypertension; F41.9 Anxiety disorder, unspecified; N32.81 Overactive bladder; E66.01 Morbid (severe) obesity due to excess calories; Z79.84 Long term (current) use of oral hypoglycemic drugs; Z79.899 Other long term (current) drug therapy; Z88.2 Allergy status to sulfonamides; Z88.8 Allergy status to other drugs, medicaments and biological substances; F40.240 Claustrophobia; K21.9 Gastro-esophageal reflux disease without esophagitis; E11.649 Type 2 diabetes mellitus with hypoglycemia without coma